=== PATIENT | male | born 1965 | race Caucasian/White ===

== ENCOUNTER 2016-07-21 07:23 | Outpatient (CLI) | payer OTHER ==
[2016-07-21 07:38] LABS: BASOPHILS % 0.4 (0.0-1.5); LYMPHOCYTES # 2.2 # k/uL (0.6-4.0); MEAN CORPUSCULAR HEMOGLOBIN 33.9 pg (28.0-34.0); MONOCYTES # 0.3 # k/uL (0.0-0.9); MONOCYTES % 4.9 % (0.0-11.0); NEUTROPHILS # 2.9 # k/uL (1.4-7.7)
[2016-07-21 08:28] LABS: eGFR (African) > 60; eGFR (Non-African) > 60
== END 2016-07-21 07:24 ==
LOC: LAB 07:23
PROVIDERS: ATTEND Internal Medicine Nephrology
DX: I10 Essential (primary) hypertension (principal); E78.2 Mixed hyperlipidemia; G47.30 Sleep apnea, unspecified; K64.9 Unspecified hemorrhoids; Z68.32 Body mass index [BMI] 32.0-32.9, adult
CPT/HCPCS: 36415; 80053; 80061; 84550; 85025

== ENCOUNTER 2017-02-11 07:38 | Outpatient (CLI) | payer OTHER ==
[2017-02-11 08:34] LABS: eGFR (African) > 60; eGFR (Non-African) > 60
== END 2017-02-11 07:40 ==
LOC: LAB 07:38
PROVIDERS: ATTEND Internal Medicine Nephrology
DX: E78.2 Mixed hyperlipidemia (principal); Z68.32 Body mass index [BMI] 32.0-32.9, adult; I10 Essential (primary) hypertension; G47.30 Sleep apnea, unspecified; K64.9 Unspecified hemorrhoids; B37.9 Candidiasis, unspecified
CPT/HCPCS: 36415; 80053; 80061

== ENCOUNTER 2019-05-23 07:25 | Outpatient (CLI) | payer OTHER ==
[2019-05-23 07:39] LABS: BASOPHILS % 0.4 % (0.0-1.5); NEUTROPHILS # 2.6 # k/uL (1.4-7.7)
[2019-05-23 07:54] LABS: HDL 30 mg/dL (>40); eGFR (Non-African) > 60
== END 2019-05-23 07:30 ==
LOC: LAB 07:25
PROVIDERS: ATTEND Internal Medicine Nephrology
DX: I10 Essential (primary) hypertension (principal); E78.2 Mixed hyperlipidemia; G47.30 Sleep apnea, unspecified; K64.9 Unspecified hemorrhoids; I48.91 Unspecified atrial fibrillation
CPT/HCPCS: 36415; 80053; 80061; 85025

== ENCOUNTER 2019-07-18 15:25 | Outpatient (CLI) | payer OTHER ==
--- NOTE | 2019-07-19 01:51 | Diagnostic Imaging Report ---
PATIENT MR#: [id number] PATIENT PATIENT NAME: CHITRA FLOREZ DATE OF : 1965 REFERRING PHYSICIAN: Rebecca Mcmanus EXAM DATE: 07/18/2019 ACCESSION NUMBER: [id number] EXAM DESCRIPTION: CHEST 2VIEW HISTORY: DRY COUGH FOR ABOUT X1 MONTH, SOME SINUS DRAINAGE. COMPARISON: None provided. CHEST RADIOGRAPH, FRONTAL AND LATERAL: Upper mediastinum: Not widened. Heart: No cardiomegaly. Lungs: No lobar infiltrate, pulmonary edema, pneumothorax or significant effusion. Skeleton: No acute findings. IMPRESSION: No acute thoracic process. Read by: Dr. Ismael Harrell Transcribed by: Ismael Harrell Transcribed Date: 07/19/2019 1:50:09 AM Electronically signed by: Dr. Ismael Harrell Date signed: 07/19/2019 1:50:45 AM
== END 2019-07-18 15:35 ==
LOC: RAD 15:25
PROVIDERS: ATTEND Nurse Practitioner
DX: R05 Cough (principal)